=== PATIENT | male | born 1970 | race Caucasian/White ===

== ENCOUNTER 2017-07-04 08:55 | Inpatient (IN) | payer BC ==
[~2017-07-04 08:55] MED LIST: Buffered Lidocaine 0.9% SYRIN* 5 ML/SYR SYRINGE INTRADERM ONE; Dexamethasone IV* 4 MG/ML 1 ML (4 MG) IV SLOW PU ONE; Famotidine IV* 10 MG/ML 2 ML (20 mg) IV ONE; Scopolamine 1.5 mg* PATCH TRANSDERM ONE
[2017-07-04] MEDS ORDERED: Famotidine IV* 10 MG/ML 2 ML (20 mg) ONE (09:20)
[2017-07-04] MEDS ORDERED: Scopolamine 1.5 mg* PATCH ONE (09:20)
[2017-07-04] MEDS ORDERED: Buffered Lidocaine 0.9% SYRIN* 5 ML/SYR SYRINGE ONE (09:20)
[2017-07-04] MEDS ORDERED: Dexamethasone IV* 4 MG/ML 1 ML (4 MG) ONE (09:20)
[2017-07-04] MEDS ORDERED: ceFAZolin 2 GM PREMIX (*) 2 GM/50 ML BAG IVPB ONE (09:21)
[2017-07-04] MEDS ORDERED: ceFAZolin 1 GM in Dextrose (*) 1 GM/50 ML BAG IVPB ONE (09:22)
[2017-07-04] MEDS ORDERED: Clindamycin 900 MG IVPREMIX(* 900 MG/50 ML SDV IV ONE (09:22)
[2017-07-04] MEDS ORDERED: Bupivacaine 0.25% SDV* 30 ML ONE ×2 (12:11→12:31)
[2017-07-04] MEDS ORDERED: Acetaminophen IV 1GM/100ML * 1,000 MG/100 ML VIAL IVPB ONE (12:23)
[2017-07-04] MEDS ORDERED: PROCHLORPERAZINE INJ 5 MG/ML 2 ML VIAL IV PRN (12:23)
[2017-07-04] MEDS ORDERED: fentaNYL* 50 MCG/ML 5 ML VIAL (250 MCG VIAL) ONE (12:28)
[2017-07-04] MEDS ORDERED: Midazolam* 1 MG/ML 2 ML VIAL (2 MG) ONE (12:28)
[2017-07-04] MEDS ORDERED: Propofol* 10 MG/ML 20 ML BTL IV PUSH ONE (12:28)
[2017-07-04] MEDS ORDERED: Lidocaine 2% PF * 5 ML VIAL ONE (12:28)
[2017-07-04] MEDS ORDERED: Succinylcholine* 20 MG/ML 10 ML VIAL ONE (12:28)
[2017-07-04] MEDS ORDERED: Cisatracurium* 2 MG/ML MDV 5 ML ONE (13:00)
[2017-07-04] MEDS ORDERED: Ketorolac INJ* 30 MG/ML 1 ML VIAL ONE (13:12)
[2017-07-04] MEDS ORDERED: fentaNYL* 50 MCG/ML 2 ML VIAL (100 MCG VIAL) ONE ×2 (13:38→14:59)
[2017-07-04] MEDS ORDERED: Ondansetron INJ* 2 MG/ML VIAL ONE ×2 (13:48→18:08)
[2017-07-04] MEDS ORDERED: Neostigmine Methylsulfate* 2 MG/2 ML SYRINGE ONE (13:48)
[2017-07-04] MEDS ORDERED: Glycopyrrolate IV* 0.2 MG/ML 1 ML VIAL ONE (13:48)
[2017-07-04] MEDS ORDERED: Metoprolol Tartrate IV* 1 MG/ML 5 ML VIAL ONE (13:52)
--- NOTE | 2017-07-04 14:23 | PN ---
Progress Note - Progress Note Date of Service: 07/04/17 Note: Brief Operative Note: Pre-op: Morbid obesity Post-op: Same Procedure: Laparoscopic sleeve gastrectomy Surgeon: Dr. Brown Desk Director: JOSESITO Cespedes Anesthesia: GETA EBL: <50 cc Fluids: LR 1500 cc Drains: None Catheter: None Specimen: Portion of stomach Findings: See dictated op note
[2017-07-04] MEDS ORDERED: Acetaminophen ADULT LIQ* 650 MG/20.3 ML UDC PO PRN (14:31)
[2017-07-04] MEDS ORDERED: diPHENhydraMINE IV* 50 MG/ML 1 ml VIAL (BENADRYL) SLOW PUSH PRN (14:31)
[2017-07-04] MEDS ORDERED: Albuterol HFA INHALER* 8 gm MDI INH PRN (14:37)
[2017-07-04] MEDS ORDERED: Famotidine IV* 10 MG/ML 2 ML (20 mg) IV SLOW PU ONE (14:39)
[2017-07-04] MEDS ORDERED: Dextrose 50% Syringe 50 ML* 25 GM/50 ML SYRINGE IV PUSH PRN (14:40)
[2017-07-04] MEDS ORDERED: Acetaminophen IV 1GM/100ML * 100 ML ONE (14:44)
[2017-07-04] MEDS: fentaNYL* 50 MCG/ML 2 ML VIAL (100 MCG VIAL) IV PRN ×2 (14:59→16:22)
[2017-07-04] MEDS ORDERED: Morphine INJ* 4 MG/ML 1 ML CARPUJECT ONE (15:30)
[2017-07-04] MEDS: Morphine INJ* 2 MG/ML 1 ML CARPUJECT IV PRN ×2 (15:32→17:10)
[2017-07-04] MEDS ORDERED: PROCHLORPERAZINE INJ 5 MG/ML 2 ML VIAL ONE (15:34)
[2017-07-04] MEDS ORDERED: HYDROmorphone INJ* 1 MG/ML CARPUJECT SYRINGE ONE (18:05)
[2017-07-04] MEDS ORDERED: Insulin LISPRO* 1 UNITS UNIT SUBCUT ONE (18:34)
[2017-07-04] MEDS: Insulin LISPRO* 1 UNITS UNIT SUBCUT SCH (18:36)
[2017-07-04] MEDS: Mometasone/Formoter 100/5 MDI INH SCH (21:58)
[2017-07-04] MEDS: Ketorolac INJ* 30 MG/ML 1 ML VIAL IV PRN (22:21)
[2017-07-04] MEDS: Heparin VIAL(*) 5000 UNITS/ML VIAL (FIVE THOUSAND) SUBCUT SCH (22:27)
[2017-07-05] MEDS: Insulin LISPRO* 1 UNITS UNIT SUBCUT SCH ×5 (00:24→23:44)
--- NOTE | 2017-07-05 03:34 | OP ---
CC: Johan Lei MD * DATE OF OPERATION: 07/04/17 - ROOM #352 DATE OF : 74 SURGEON: Aric Brown MD ENTRY LEVEL MANAGEMENT: JOSESITO Baca ANESTHESIOLOGIST: Aicha Gross MD ANESTHESIA: General endotracheal. PRE-OP DIAGNOSIS: Morbid obesity. POST-OP DIAGNOSES: Morbid obesity. OPERATIVE PROCEDURE: Laparoscopic sleeve gastrectomy. ESTIMATED BLOOD LOSS: Minimal. IV FLUIDS: 1.5L crystalloid. SPECIMEN: Portion of stomach. DRAINS: None. COMPLICATIONS: None. COUNTS: Instrument, needle, and sponge counts were correct. DESCRIPTION OF PROCEDURE: The patient was brought to the operating room and placed on the table supine. Sequential compression devices were placed on both lower extremities and general anesthesia was administered. The patient was positioned and padded appropriately. He was prepped and draped in usual sterile fashion. He received appropriate intravenous antibiotics and time-out was performed. Local anesthetic was infiltrated into the skin and soft tissue prior to making each incision. Entry into the abdomen was through a left upper quadrant incision accommodating a 5-mm optical trocar. After accessing the peritoneal cavity, carbon dioxide was insufflated to a pressure of 15 mmHg. Under direct visualization, a bladeless 12-mm trocar was placed in the supraumbilical midline and also in the right upper quadrant. A 5-mm bladeless trocar was placed in the left upper quadrant laterally. A Penny liver retractor was placed percutaneously in the subxiphoid position and used to elevate the left lobe of the liver. Gastric anatomy appeared normal. The liver appeared to be fatty infiltrated. Mobilization of the stomach began at 6 cm proximal to the pylorus and along the greater curvature, LigaSure was used to completely skeletonize the stomach up to the gastroesophageal junction. There were some adhesions in the lesser sac that were taken down as well. Next, the sleeve gastrectomy was performed over a 40 [place] using the EndoGIA staple with purple reinforced stable cartridges. After completing the gastrectomy, the specimen was placed into an endoscopic retrieval bag and retrieved through the right upper quadrant port site. This site was subsequently closed with 0 Vicryl suture intraoperative. The remaining ports were then removed under direct visualization as was the liver retractor and the carbon dioxide was released. The skin incisions were closed with polo. Dressings were applied. The patient tolerated the procedure well. He was extubated and transferred to the recovery room in a stable condition. [id number]/[facility] #: [id number] FREDIS
[2017-07-05] MEDS: HYDROmorphone INJ* 2 MG/ML CARPUJECT SYRINGE IV PRN ×2 (03:50→13:39)
[2017-07-05] MEDS: Ondansetron INJ* 2 MG/ML VIAL IV PRN ×2 (04:00→13:46)
[2017-07-05] MEDS: Mometasone/Formoter 100/5 MDI INH SCH ×2 (07:21→22:09)
[2017-07-05] MEDS: Heparin VIAL(*) 5000 UNITS/ML VIAL (FIVE THOUSAND) SUBCUT SCH ×3 (07:23→22:08)
[2017-07-05] MEDS: Ketorolac INJ* 30 MG/ML 1 ML VIAL IV PRN ×2 (08:23→22:07)
[2017-07-05] MEDS: D5W 1/2 NS KCl 20 Meq 1000 ML* 1,000 ML IV SCH ×2 (14:43→22:13)
--- NOTE | 2017-07-05 14:55 | PN ---
Progress Note - Progress Note Date of Service: 07/05/17 SOAP: Subjective: Reports some nausea/dry heaves. Good pain control. Started drinking. Objective: Vital Signs Temp 98.7 F 07/05/17 11:36 Pulse 72 07/05/17 11:36 Resp 16 07/05/17 13:39 BP 155/82 07/05/17 11:36 Pulse Ox 94 07/05/17 11:36 Gen: NAD Abd: incisions c/d/i; no erythema; soft and min tender in RUQ incision. Intake & Output 07/04/17 07/05/17 07/05/17 18:59 06:59 18:59 Intake Total 1800 1000 2046 Output Total 335 475 Balance 9554 733 6754 Intake: IV Fluids 1800 1000 1986 LR 1800 1000 1986 Oral 0 60 Output: Urine 335 475 Laboratory Results - last 24 hr 07/04/17 07/05/17 07/05/17 18:30 00:00 07:21 POC Glucose (mg/dL) 186 H 170 H 159 H 07/05/17 12:16 POC Glucose (mg/dL) 134 H Assessment: POD#1 s/p LSG. Doing well. Plan: Cont diet. Ambulated. Possible d/c in am.
[2017-07-05] MEDS: HYDROcodone/ACET. 7.5/325 LIQ* 15 ML UDC PO PRN (18:31)
[2017-07-06] MEDS: HYDROcodone/ACET. 7.5/325 LIQ* 15 ML UDC PO PRN ×2 (03:23→09:55)
[2017-07-06] MEDS: Insulin LISPRO* 1 UNITS UNIT SUBCUT SCH ×2 (06:33→11:54)
[2017-07-06] MEDS: Heparin VIAL(*) 5000 UNITS/ML VIAL (FIVE THOUSAND) SUBCUT SCH (06:34)
[2017-07-06] MEDS: D5W 1/2 NS KCl 20 Meq 1000 ML* 1,000 ML IV SCH (06:37)
[2017-07-06] MEDS: Mometasone/Formoter 100/5 MDI INH SCH (09:54)
--- NOTE | 2017-07-06 10:13 | PN ---
Progress Note - Progress Note Date of Service: 07/06/17 Note: Surgery Progress: (see dictated discharge summary) S: Doing well. Ana Luisa jeff clears. O: Vital Signs - 8 hr 07/06/17 07/06/17 07/06/17 03:23 03:38 06:26 Temperature 99.2 F Pulse Rate 75 Respiratory 14 16 16 Rate Blood Pressure 143/83 (mmHg) O2 Sat by Pulse 95 Oximetry 07/06/17 07/06/17 07/06/17 07:23 07:38 09:55 Temperature 98.0 F Pulse Rate 68 Respiratory 16 16 16 Rate Blood Pressure 139/76 (mmHg) O2 Sat by Pulse 98 Oximetry Intake and Output Last 24 Hours 07/04/17 07/05/17 07/06/17 07/07/17 06:59 06:59 06:59 06:59 Intake Total 2800 4734 Output Total 335 2225 550 Balance 2465 2509 -550 Intake: IV Fluids 2800 3924 D5W 1/2 NS 20 meq KCL 1938 LR 2800 1986 Oral 0 810 Output: Urine 335 2225 550 Heart: reg Lungs: clear Abd: +BS; lap sites ok A/P: s/p lap sleeve gastrectomy, doing well; home today; instructions given
--- NOTE | 2017-07-06 11:12 | DS ---
CC: Dr. Johan Lei DATE OF ADMISSION: 07/04/2017. DATE OF DISCHARGE: 07/06/2017. ATTENDING SURGEON: Dr. Aric Brown (JOSESITO Henderson dictating). HOSPITAL COURSE: Please refer to admission history and physical for admission details. The patient was taken to the operating room on 07/04/2017, at which time he underwent laparoscopic sleeve gastrec grace with Dr. Brown. Surgery was otherwise uneventful. He has had an uneventful postoperative cou rse with gradual tolerance of bariatric clear liquids and pain control. He is ambulating and voiding well. PHYSICAL EXAMINATION: General: Well-nourished, well-developed and in no acute distress. Skin: Warm and dry. Vital Signs: Temperature 98, blood pressure 139/76, pulse 68, respirations 16, room air s aturation 98 percent. Heart: Regular rate and rhythm. Lungs: Clear to auscultation. Abdomen: [place] sounds are present. Laparoscopic incision site is clear without evidence of infection. Abdomen: Soft with mild incisional tenderness only. Finger stick glucoses have been ranging between 110 and 186. IMPRESSION: Status post laparoscopic sleeve gastrectomy, doing well. PLAN: The patient will be discharged home today. Instructions were reviewed regarding wound care, a ctivity and diet. He will continue his usual Albuterol and Symbicort prn, as well as Levocetirizine. He will hold his Benicar, Crestor and Trilipix, as well as Metformin for the present time. He will be taking the prescribed supplements, i.e. multivitamin, B12, and he will resume vitamin D when able . Follow-up will be next week at the [facility]. JOSESITO HENDERSON [id number]/[facility] #: [id number]
[2017-07-06 12:12] VITALS: BP 133/81
[2017-07-07] MEDS ORDERED: Scopolamine PATCH Remove* 1 NOTE MISC PATCH OFF ONE (06:00)
== END 2017-07-06 13:21 | disposition home or self-care (01) | DRG 403 ==
LOC: AA 08:55 → SSU 17:51
PROVIDERS: ADMIT Surgery; ATTEND Surgery
PROC: 0DB64Z3 Excision of Stomach, Percutaneous Endoscopic Approach, Vertical (ICD-10-PCS; principal; 2017-07-04 10:30)
DX: E66.01 Morbid (severe) obesity due to excess calories (principal); K76.0 Fatty (change of) liver, not elsewhere classified; E29.1 Testicular hypofunction; I10 Essential (primary) hypertension; E78.2 Mixed hyperlipidemia; M19.90 Unspecified osteoarthritis, unspecified site; E55.9 Vitamin D deficiency, unspecified; G47.33 Obstructive sleep apnea (adult) (pediatric); J45.909 Unspecified asthma, uncomplicated; M79.89 Other specified soft tissue disorders; Z83.3 Family history of diabetes mellitus; Z80.3 Family history of malignant neoplasm of breast; Z84.1 Family history of disorders of kidney and ureter; Z82.49 Family history of ischemic heart disease and other diseases of the circulatory system; Z81.8 Family history of other mental and behavioral disorders; Z82.3 Family history of stroke; Z82.61 Family history of arthritis; Z87.891 Personal history of nicotine dependence; Z68.42 Body mass index [BMI] 45.0-49.9, adult
CPT/HCPCS: 43775; 88307; 94640; A9270-GY; J0330; J0690; J0780; J1100; J1170; J1644; J1885; J2250; J2270; J2405; J2704; J3010; J3490